=== PATIENT | male | born 1960 | race Asian ===

== ENCOUNTER 2017-08-13 10:33 | Emergency (ER) | payer BC ==
[2017-08-13 10:43] VITALS: BP 157/84; PULSE 73; TEMP 98.2; BMI 26.6
--- NOTE | 2017-08-13 11:11 | PDOC ---
History of Present Illness - General Chief Complaint: Laceration Stated Complaint: BLEEDING Time Seen by Provider: 08/13/17 10:49 History Source: Patient Exam Limitations: No Limitations - History of Present Illness Initial Comments: 08/13/17 11:04 HPI: This 56-year-old male presents to the emergency room via ambulance because of his left medial ankle was bleeding. He states that he was walking in his apartment when he noticed that he was trailing blood. He did not know if he stepped on anything but did not feel anything break his skin. He does have a history of varicose veins and has been stripping/bypass to his left leg several years ago. He does have diabetes with some neuropathy as well. The bandage was in place and there was no active bleeding noted upon arrival Chief Compliant: Left medial ankle bleeding Pain location: Denies pain Duration: Modifying factors: Quality: Radiating: Severity: Time: PMH: Diabetes, neuropathy FH: Pt has not recently traveled outside the country in the last 30 days. Pt has not been in contact with people who have traveled out of the country, in contact with people who have been ill with fever, n, v, d. SH: smoking use: NONE illicit drug use: NONE alcohol use: NONE employment: Works as a salesman in [employer] PSH: Vein stripping Home med use noted on JUN Allergies: NKA Immunizations: PCP: Past History - Past Medical History Allergies/Adverse Reactions: Allergies Allergy/AdvReac Type Severity Reaction Status Date / Time No Known Drug Allergies Allergy Verified 08/13/17 10:41 Home Medications: Ambulatory Orders Glipizide [Glipizide Xl] 10 mg PO BID 05/05/14 Metformin HCl 500 mg PO BID 08/13/17 COPD: No Diabetes: Yes - Suicide/Smoking/Psychosocial Hx Smoking History: Never smoked Have you smoked in the past 12 months: No Hx Alcohol Use: No Drug/Substance Use Hx: No Substance Use Type: Alcohol Hx Substance Use Treatment: No Review of Systems - Review of Systems Able to Perform ROS?: Yes Comments:: 08/13/17 11:11 General statement: Bleeding Hematology: neg history of bleeding/blood thinners Skin: Neg for lesions, rash, bruising. HEENT: Neg symptoms Respiratory: Neg SOB or difficulty in breathing Cardiac: Neg chest pain GI: Neg pain, n/v : Neg problems on voiding MS: Neg for joint pain/stiffness, no edema, left ankle bleeding medial Neuro: Neg for LOC, weakness, Endocrine: Neg for excess thirst/hunger, cold/heat intolerance, excess sweating Allergies: Neg for allergies *Physical Exam - Vital Signs Last Vital Signs Temp Pulse Resp BP Pulse Ox 98.2 F 73 18 157/84 99 08/13/17 10:41 08/13/17 10:41 08/13/17 10:41 08/13/17 10:41 08/13/17 10:41 - Physical Exam Comments: 08/13/17 11:12 General Appearance: This well appearing 56-year-old male V/S: hemodynamically stable, afebrile Skin: WNL of pt's skin color, no signs of pallor, mottling, cyanosis Head:symmetrical Eyes: EOM's intact, PERRLA Ears: denies pain Nose: patent Throat: lips, teeth, gums, tongue, buccal mucos pink and moist Lungs: Chest symmetry equal. Cap refill <3 seconds. Lung sounds clear Cardiac: PMI at R 4MCL space, pos S1 and S2, regular rate. Abdomen: Soft, round, nontender : Not observed Muscularskeletal: Gait steady, ambulated in to ER, no edema +PMS, noted to have a small half centimeter clotted left medial aspect of ankle. Foot cleaned off and noted that there is a clot and no active bleeding. This was observed. Area cleaned and dressing applied. Neuro: AAOx3, cognitively intact, speech clear and appropriate. General Appearance: Yes: Nourished Medical Decision Making - Medical Decision Making 08/13/17 11:12 A/P: 56-year-old male with a varicose vein that was actively bleeding at home now controlled prior to arrival -area cleaned -tetanus ordered -dressing reapplied -care instructions given -discharge to home *DC/Admit/Observation/Transfer Diagnosis at time of Disposition: Bleeding from varicose veins of right lower extremity - Discharge Dispostion Disposition: HOME Condition at time of disposition: Good Admit: No - Referrals Referrals: Curry Drew MD [Primary Care Provider] - - Patient Instructions Printed Discharge Instructions: DI on Treatment of Varicose Veins of the Leg Additional Instructions: Discharge instructions 1. Please follow up with your primary physician, Rajendra, within the next few days and explain that you have been seen here in the Emergency Room for bleeding in the left ankle from a varicose vein. 2. If you experience any worsening of symptoms, such as bleeding please return to the ER 3. Rest, elevate the left leg today, keep the dressing on. It it starts bleeding again, hold pressure and if it does not stop in a few minutes return to ER 4. You have received a tetanus shot today. - Post Discharge Activity Forms/Work/School Notes: Back to Work
[2017-08-13] MEDS ORDERED: TETANUS AND DIPHTHERIA TOXOID 0.5 ML DISP.SYRIN IM ONE (11:15)
== END 2017-08-13 11:33 | disposition home or self-care (01) ==
LOC: JER 10:33
PROC: 3E0234Z Introduction of Serum, Toxoid and Vaccine into Muscle, Percutaneous Approach (ICD-10-PCS; principal; 2017-08-13)
DX: I83.892 Varicose veins of left lower extremity with other complications (principal); E11.42 Type 2 diabetes mellitus with diabetic polyneuropathy; Z79.84 Long term (current) use of oral hypoglycemic drugs
CPT/HCPCS: 99281-25